=== PATIENT | male | born 1955 | race Caucasian/White ===

== ENCOUNTER 2025-09-12 04:39 | Inpatient (IN) ==
[2025-09-08 15:56] LABS: INR 1.1 (0.9-1.1); Prothrombin Time 14.8 sec (11.9-14.5)
[2025-09-12] MEDS ORDERED: PROPOFOL 200 MG/20 ML VIAL IV ONE ×2 (07:10→08:15)
[2025-09-12] MEDS ORDERED: fentaNYL 100 MCG/2 ML VIAL ONE (07:10)
[2025-09-12] MEDS ORDERED: HYDROmorphone 0.5 MG/0.5 ML SYRINGE ONE ×2 (07:10→08:25)
[2025-09-12] MEDS ORDERED: ONDANSETRON 4 MG/2 ML VIAL ONE (07:11)
[2025-09-12] MEDS ORDERED: GLYCOPYRROLATE 0.2 MG/ML VIAL IV ONE (07:11)
[2025-09-12] MEDS ORDERED: BUPIVACAINE LIPOSOMAL 1.3% 10 ML VIAL IJ ONE (07:11)
[2025-09-12] MEDS ORDERED: SUCCINYLCHOLINE 200 MG/10 ML VIAL IV ONE (07:11)
[2025-09-12] MEDS ORDERED: LIDOCAINE 2% PF 5 ML VIAL ONE ×2 (07:11→08:26)
[2025-09-12] MEDS ORDERED: ROCURONIUM 10 MG/ML ML IV ONE ×2 (07:11→08:15)
[2025-09-12] MEDS ORDERED: DEXAMETHASONE 10 MG/ML VIAL ONE (07:11)
[2025-09-12] MEDS ORDERED: FAMOTIDINE/PF 20 MG/2 ML VIAL IV ONE (07:13)
[2025-09-12] MEDS ORDERED: BUPIVACAINE PF 0.5% 10 ML VIAL ONE (07:13)
[2025-09-12] MEDS ORDERED: MAGNESIUM SULFATE 2 GM/50 ML BAG IV ONE ×2 (07:13→08:26)
[2025-09-12] MEDS: CIPROFLOXACIN 400 MG/200 ML BAG IV SCH ×2 (07:15→20:27)
[2025-09-12] MEDS ORDERED: PHENYLephrine 1 MG/10 ML SYRINGE (ANEST) ONE (07:42)
[2025-09-12] MEDS: metroNIDAZOLE 500 MG/100 ML BAG IV SCH ×2 (07:55→13:34)
[2025-09-12] MEDS ORDERED: ePHEDrine 50 MG/5 ML SYRINGE (ANEST) IV ONE (07:57)
[2025-09-12] MEDS ORDERED: SUGAMMADEX SODIUM 200 MG/2 ML VIAL IV ONE (10:10)
[2025-09-12] MEDS ORDERED: METOPROLOL TARTRATE 5 MG/5 ML VIAL IV PRN (10:33)
[2025-09-12] MEDS ORDERED: NALOXONE HCL 0.4 MG/ML VIAL IV PRN (10:33)
[2025-09-12] MEDS ORDERED: IPRATROPIUM/ALBUTEROL 3 ML AMPUL.NEB NEB PRN (10:33)
[2025-09-12] MEDS ORDERED: ONDANSETRON 4 MG/2 ML VIAL IV PRN ×2 (10:33→12:45)
[2025-09-12] MEDS ORDERED: BENZOCAINE/MENTHOL 1 LOZENGE PO PRN (10:33)
[2025-09-12] MEDS ORDERED: MEPERIDINE 25 MG/ML VIAL IV PRN (10:33)
[2025-09-12] MEDS ORDERED: LACTATED RINGERS 250 ML IV PRN (10:33)
[2025-09-12] MEDS: ACETAMINOPHEN 1,000 MG/100 ML BAG IV ONE (10:56)
[2025-09-12] MEDS: HYDROmorphone 0.5 MG/0.5 ML SYRINGE IV PRN ×2 (11:18→14:44)
[2025-09-12] MEDS: METHOCARBAMOL 1,000 MG/10 ML VIAL IV PRN (11:19)
[2025-09-12] MEDS: fentaNYL 100 MCG/2 ML VIAL IV PRN (11:24)
[2025-09-12] MEDS: LACTATED RINGERS 1,000 ML IV SCH (13:14)
[2025-09-12] MEDS: METOCLOPRAMIDE 10 MG/2 ML VIAL IV SCH (13:34)
[2025-09-12] MEDS: 0.9 % SODIUM CHLORIDE 1,000 ML IV SCH (16:14)
[2025-09-12] MEDS: ACETAMINOPHEN 1,000 MG/100 ML BAG IV SCH (17:35)
[2025-09-12] MEDS: PANTOPRAZOLE 40 MG VIAL IV SCH (17:36)
[2025-09-13 06:20] LABS: Basophils # (Auto) 0.02 K/mcL (0.00-0.30); Basophils % (Auto) 0.2 % (0.0-2.0); Eosinophils # (Auto) 0.03 K/mcL (0.00-0.70); Eosinophils % (Auto) 0.3 % (0.0-7.0); Hematocrit 41.7 % (40.1-51.0); Hemoglobin 13.7 g/dL (13.7-17.5); Lymphocytes # (Auto) 1.06 K/mcL (1.50-4.80); Lymphocytes % (Auto) 9.7 % (15.5-49.0); Mean Corpuscular HGB Conc 32.9 g/dL (31.0-36.0); Monocytes # (Auto) 1.08 K/mcL (0.10-0.90); Monocytes % (Auto) 9.9 % (1.0-12.0); Neutrophils % (Auto) 79.6 % (38.0-78.0); Platelet Count 199 K/mcL (140-440); RBC 4.78 M/mcL (4.63-6.08); WBC 11.0 K/mcL (4.5-11.0)
[2025-09-13] MEDS: BENZOCAINE ONE 20% 1 SPRAY TOPICAL PRN (09:13)
[2025-09-14 06:15] LABS: Basophils # (Auto) 0.05 K/mcL (0.00-0.30); Basophils % (Auto) 0.4 % (0.0-2.0); Eosinophils # (Auto) 0.30 K/mcL (0.00-0.70); Eosinophils % (Auto) 2.5 % (0.0-7.0); Hematocrit 43.7 % (40.1-51.0); Hemoglobin 14.7 g/dL (13.7-17.5); Lymphocytes # (Auto) 1.01 K/mcL (1.50-4.80); Lymphocytes % (Auto) 8.5 % (15.5-49.0); Mean Corpuscular HGB Conc 33.6 g/dL (31.0-36.0); Monocytes # (Auto) 0.99 K/mcL (0.10-0.90); Monocytes % (Auto) 8.3 % (1.0-12.0); Neutrophils % (Auto) 80.1 % (38.0-78.0); Platelet Count 236 K/mcL (140-440); RBC 5.10 M/mcL (4.63-6.08); WBC 11.9 K/mcL (4.5-11.0)
[2025-09-14 06:37] LABS: ALT/SGPT 18 U/L (<40); AST/SGOT 33 U/L (<40); Albumin 3.2 gm/dL (3.2-5.2); Albumin/Globulin Ratio 0.9 (1.0-2.3); Alkaline Phosphatase 60 U/L (39-117); Anion Gap 12.0 (8.0-16.0); Bilirubin,Direct 0.3 mg/dL (<0.3); Bilirubin,Total 0.6 mg/dL (0.1-1.0); Blood Urea Nitrogen 10 mg/dL (8-23); Calcium 8.7 mg/dL (8.6-10.4); Carbon Dioxide 25 mmol/L (22-30); Chloride 99 mmol/L (96-108); Globulin 3.4 gm/dL (2.2-3.7); Glucose 89 mg/dL (70-105); Phosphorous 2.5 mg/dL (2.5-4.5); Potassium 3.9 mmol/L (3.3-5.1); Sodium 136 mmol/L (133-145); Triglycerides 70 mg/dL (<150); Uric Acid 7.0 mg/dL (2.5-8.0)
[2025-09-15 07:59] LABS: Basophils # (Auto) 0.04 K/mcL (0.00-0.30); Basophils % (Auto) 0.4 % (0.0-2.0); Eosinophils # (Auto) 0.38 K/mcL (0.00-0.70); Eosinophils % (Auto) 3.6 % (0.0-7.0); Hematocrit 43.9 % (40.1-51.0); Hemoglobin 15.0 g/dL (13.7-17.5); Lymphocytes # (Auto) 0.89 K/mcL (1.50-4.80); Lymphocytes % (Auto) 8.5 % (15.5-49.0); Mean Corpuscular HGB Conc 34.2 g/dL (31.0-36.0); Monocytes # (Auto) 0.95 K/mcL (0.10-0.90); Monocytes % (Auto) 9.1 % (1.0-12.0); Neutrophils % (Auto) 78.2 % (38.0-78.0); Platelet Count 265 K/mcL (140-440); RBC 5.17 M/mcL (4.63-6.08); WBC 10.5 K/mcL (4.5-11.0)
[2025-09-15 08:01] LABS: ALT/SGPT 29 U/L (<40); AST/SGOT 48 U/L (<40); Albumin 3.3 gm/dL (3.2-5.2); Albumin/Globulin Ratio 1.0 (1.0-2.3); Alkaline Phosphatase 59 U/L (39-117); Anion Gap 14.0 (8.0-16.0); Bilirubin,Direct 0.3 mg/dL (<0.3); Bilirubin,Total 0.6 mg/dL (0.1-1.0); Blood Urea Nitrogen 10 mg/dL (8-23); Calcium 9.0 mg/dL (8.6-10.4); Carbon Dioxide 23 mmol/L (22-30); Chloride 102 mmol/L (96-108); Globulin 3.4 gm/dL (2.2-3.7); Glucose 89 mg/dL (70-105); Phosphorous 2.7 mg/dL (2.5-4.5); Potassium 3.6 mmol/L (3.3-5.1); Sodium 139 mmol/L (133-145); Triglycerides 70 mg/dL (<150); Uric Acid 8.3 mg/dL (2.5-8.0)
[2025-09-16 06:58] LABS: Basophils # (Auto) 0.05 K/mcL (0.00-0.30); Basophils % (Auto) 0.6 % (0.0-2.0); Eosinophils # (Auto) 0.62 K/mcL (0.00-0.70); Eosinophils % (Auto) 7.3 % (0.0-7.0); Hematocrit 40.5 % (40.1-51.0); Hemoglobin 13.7 g/dL (13.7-17.5); Lymphocytes # (Auto) 0.96 K/mcL (1.50-4.80); Lymphocytes % (Auto) 11.4 % (15.5-49.0); Mean Corpuscular HGB Conc 33.8 g/dL (31.0-36.0); Monocytes # (Auto) 0.76 K/mcL (0.10-0.90); Monocytes % (Auto) 9.0 % (1.0-12.0); Neutrophils % (Auto) 71.5 % (38.0-78.0); Platelet Count 247 K/mcL (140-440); RBC 4.79 M/mcL (4.63-6.08); WBC 8.4 K/mcL (4.5-11.0)
[2025-09-16] MEDS: POLYETHYLENE GLYCOL 3350 17 GM PACKET PO SCH (20:48)
[2025-09-17 04:44] VITALS: O2SAT 97
[2025-09-17 09:40] LABS: Basophils # (Auto) 0.04 K/mcL (0.00-0.30); Basophils % (Auto) 0.6 % (0.0-2.0); Eosinophils # (Auto) 0.56 K/mcL (0.00-0.70); Eosinophils % (Auto) 8.1 % (0.0-7.0); Hematocrit 40.7 % (40.1-51.0); Hemoglobin 13.8 g/dL (13.7-17.5); Lymphocytes # (Auto) 0.96 K/mcL (1.50-4.80); Lymphocytes % (Auto) 13.9 % (15.5-49.0); Mean Corpuscular HGB Conc 33.9 g/dL (31.0-36.0); Monocytes # (Auto) 0.51 K/mcL (0.10-0.90); Monocytes % (Auto) 7.4 % (1.0-12.0); Neutrophils % (Auto) 69.7 % (38.0-78.0); Platelet Count 247 K/mcL (140-440); RBC 4.76 M/mcL (4.63-6.08); WBC 6.9 K/mcL (4.5-11.0)
[2025-09-17 14:43] VITALS: TEMP 97.1
== END 2025-09-17 14:55 | disposition home or self-care (01) | DRG 331 ==
LOC: MEDSUR 04:39 → EDSTATUS 07:30
PROVIDERS: ADMIT Family Medicine Adult Medicine; ATTEND Family Medicine Adult Medicine